=== PATIENT | male | born 1950 | race African-American/Black ===

== ENCOUNTER 2016-11-19 19:41 | Emergency (ER) | payer OTHER, BC ==
[2016-11-19 20:14] VITALS: BP 121/73; PULSE 66; TEMP 97.9; BMI 37.2
--- NOTE | 2016-11-19 21:09 | PDOC ---
History of Present Illness - General Chief Complaint: Pain Stated Complaint: PAIN Time Seen by Provider: 11/19/16 20:56 History Source: Patient Exam Limitations: No Limitations - History of Present Illness Initial Comments: CHIEF COMPLAINT: 66 y/o afebrile male with PMH HTN and DM c/o right wrist pain x 2 weeks. HISTORY OF PRESENT ILLNESS: The patient states his wrist, just below the base of his thumb has been hurting for 2 weeks. He denies trauma to the area or fall onto outstretched hands. 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 He denies swelling, redness, numbnes/tingling. Vital signs on arrival are within normal limits. REVIEW OF SYSTEMS: GENERAL/CONSTITUTIONAL: No fever/chills. No weakness. No weight change. HEAD, EYES, EARS, NOSE AND THROAT: No change in vision. No ear pain or discharge. No sore throat. MUSCULOSKELETAL: +right wrist pain. No neck or back pain. SKIN: No rash or easy bruising. NEUROLOGIC: No headache, vertigo, loss of consciousness, or loss of sensation. PHYSICAL EXAM: VITAL_SIGNS: within normal limits GENERAL_APPEARANCE: alert, cooperative, No obvious discomfort. MENTAL_STATUS: speech clear, oriented X 3, responds appropriately to questions. NEURO: motor intact and sensory intact in injured extremity. EXTREMITIES: good pulse in injured extremity. Positive Roger's test and TTP to right snuffbox area. No redness or swelling to affected area. SKIN: warm, dry, good color. Past History - Past Medical History Allergies/Adverse Reactions: Allergies Allergy/AdvReac Type Severity Reaction Status Date / Time No Known Allergies Allergy Verified 11/19/16 20:10 Home Medications: Ambulatory Orders Metformin HCl 500 mg PO ASDIR 11/19/16 Sitagliptin Phosphate [Januvia] 50 mg PO DAILY 11/19/16 Diabetes: Yes HTN: Yes - Immunization History Immunization Up to Date: Yes - Psycho/Social/Smoking Cessation Hx Anxiety: No Suicidal Ideation: No Smoking Status: Yes Smoking History: Never smoked Years of Tobacco Use: 15 Have you smoked in the past 12 months: No Number of Cigarettes Smoked Daily: 10 Cigars Per Day: 0 Information on smoking cessation initiated: No Hx Alcohol Use: No Drug/Substance Use Hx: No *Physical Exam - Vital Signs Last Vital Signs Temp Pulse Resp BP Pulse Ox 97.9 F 66 14 121/73 97 11/19/16 20:12 11/19/16 20:12 11/19/16 20:12 11/19/16 20:12 11/19/16 20:12 Medical Decision Making - Medical Decision Making A/P: 66 y/o afebrile male with right dequervain's tenosynovitis. THe patient is insisting on an xray. Xray of right wrist IMPRESSION (wet read): No obvious fracture The patient was given the diagnosis. Suggested he try to find and over the counter brace that holds his right thumb in extension, apply ice multiple times per day and take aleve consistently for pain. He has a scheduled Orthopedic appointment on 11/24/16, which I instructed him to keep. The patient verbalizes understanding of all instructions, has no further questions and is awaiting discharge. *DC/Admit/Observation/Transfer Diagnosis at time of Disposition: Tenosynovitis, de Quervain - Discharge Dispostion Disposition: HOME - Referrals Referrals: Allan Hernandez MD [Primary Care Provider] - - Patient Instructions Printed Discharge Instructions: DI for Tenosynovitis, DI for De Quervain's Tenosynovitis Additional Instructions: Discharge Instructions: -You have DeQuervain's Tenosynovitis -Please take Aleve daily as prescribed -Apply ice to the affected area multiple times per day -use an over the counter brace that holds your thumb in place -Keep your follow up appointment with your orthopedic doctor scheduled for next week.
== END 2016-11-19 21:57 | disposition home or self-care (01) ==
LOC: JERFT 19:41
DX: M65.4 Radial styloid tenosynovitis [de Quervain] (principal); E11.9 Type 2 diabetes mellitus without complications; Z79.84 Long term (current) use of oral hypoglycemic drugs
CPT/HCPCS: 73110-TC-RT; 73130-TC-RT; 99281-25

== ENCOUNTER 2017-11-02 10:07 | Day surgery (SDC) | payer OTHER, BC ==
[2017-11-02] MEDS ORDERED: PROPOFOL 20 ML ONE ×3 (10:58)
[2017-11-02] MEDS ORDERED: LIDOCAINE HCL/PF 2% SDV 5ML VIAL ONE (10:58)
[2017-11-02 11:18] VITALS: BMI 36.6
[2017-11-02 12:44] VITALS: TEMP 97.4
[2017-11-02 13:34] VITALS: BP 123/61; PULSE 75
[2017-11-02 14:19] LABS: ALBUMIN 3.7 g/dl (3.4-5.0); ANION GAP 9 (8-16); BILIRUBIN,TOTAL 0.7 mg/dL (0.2-1.0); BLOOD UREA NITROGEN 8 mg/dL (7-18); CALCIUM 9.9 mg/dL (8.5-10.1); CHLORIDE 104 mmol/L (98-107); CO2 27 mmol/L (21-32); CREATININE 0.9 mg/dL (0.7-1.3); GLUCOSE,RANDOM 105 mg/dL (74-106); SGOT/AST 45 U/L (15-37); SGPT/ALT 71 U/L (12-78); SODIUM 140 mmol/L (136-145); TOT PROT 7.6 g/dl (6.4-8.2)
[2017-11-02 14:20] LABS: ALK PHOS 190 U/L (45-117)
--- NOTE | 2017-11-03 11:31 | PATH ---
Surgical Pathology Report Patient Name: FLOR YODER [facility]. Rec. #: [id number] /Age/Gender: 1950 (Age: 67) / M Account: [id number] Location: ASU-ENDOSCOPY Taken: 11/02/2017 Received: 11/02/2017 Reported: 11/03/2017 Physicians: Donato Persaud D.O. Specimen(s) Received A: PROXIMAL TRANSVERSE COLON B: BX LEFT COLON POLYP Clinical History Preoperative diagnosis: Colon screening Postoperative diagnosis: Colon polyps, diverticulosis Final Diagnosis A. PROXIMAL TRANSVERSE COLON, POLYP, POLYPECTOMY: TUBULAR ADENOMA. B. COLON, LEFT, POLYP, BIOPSY: POLYPOID COLONIC MUCOSA WITH SUPERFICIAL HYPERPLASTIC FEATURES. Electronically Signed Diana Gilliland M.D. Gross Description A. Received in formalin, labeled "proximal transverse colon polyp" is a cabello, polypoid portion of soft tissue measuring 0.5 cm. in greatest dimension. The specimen is submitted in toto in one cassette. B. Received in formalin, labeled "biopsy left colon polyp" are 2 cabello, irregular portions of soft tissue measuring 0.1 and 0.2 cm. in greatest dimension. The specimens are submitted in toto in one cassette. 11/02/2017 saudi11/02/2017
[2017-11-05 00:12] LABS: HCV RNA GENOTYPE 1a (.)
== END 2017-11-02 13:40 | disposition home or self-care (01) ==
LOC: JASU-ENDO 10:07
PROVIDERS: ATTEND Internal Medicine Gastroenterology
PROC: 0DBG8ZX Excision of Left Large Intestine, Via Natural or Artificial Opening Endoscopic, Diagnostic (ICD-10-PCS; 2017-11-02)
PROC: 0DBL8ZX Excision of Transverse Colon, Via Natural or Artificial Opening Endoscopic, Diagnostic (ICD-10-PCS; principal; 2017-11-02 12:15)
DX: Z12.11 Encounter for screening for malignant neoplasm of colon (principal); K57.30 Diverticulosis of large intestine without perforation or abscess without bleeding; D12.3 Benign neoplasm of transverse colon; K64.8 Other hemorrhoids
CPT/HCPCS: 36415; 80053; 82105; 87902; 88305-TC

== ENCOUNTER 2019-09-02 11:40 | Emergency (ER) | payer OTHER, BC ==
[2019-09-02 11:53] VITALS: BP 135/81; PULSE 75; TEMP 98.1; BMI 39.9
--- NOTE | 2019-09-02 12:32 | PDOC ---
History of Present Illness - General Chief Complaint: Cold Symptoms Stated Complaint: COLD SYMPTOMS Time Seen by Provider: 09/02/19 12:11 History Source: Patient - History of Present Illness Timing/Duration: reports: other Associated Symptoms: denies: cough Past History - Past Medical History Allergies/Adverse Reactions: Allergies Allergy/AdvReac Type Severity Reaction Status Date / Time No Known Allergies Allergy Verified 11/19/16 20:10 Home Medications: Ambulatory Orders Sitagliptin Phosphate [Januvia] 100 mg PO DAILY 11/19/16 metFORMIN HCL [Metformin HCl] 500 mg PO BID 11/19/16 Amlodipine Besylate/Benazepril [Lotrel 10-20 mg Capsule] 1 cap PO DAILY Sildenafil Citrate [Viagra] 100 mg PO DAILY 10/26/17 Fluticasone Prop 0.05% Nasal [Flonase -] 1 spray NS ASDIR #1 bot 09/02/19 Loratadine [Claritin] 10 mg PO DAILY #7 tablet 09/02/19 Oxymetazoline HCl [Afrin] 15 ml NS ASDIR #1 mist 09/02/19 Cancer: Yes (PROSTATE, S/P BRACHYTHERAPY 2013) COPD: No Diabetes: Yes HTN: Yes Hypercholesterolemia: Yes - Immunization History Immunization Up to Date: Yes - Psycho Social/Smoking Cessation Hx Smoking Status: Yes Smoking History: Never smoked Years of Tobacco Use: 15 Have you smoked in the past 12 months: No Number of Cigarettes Smoked Daily: 10 If you are a former smoker, when did you quit?: 37 YEARS Cigars Per Day: 0 Information on smoking cessation initiated: No Hx Alcohol Use: No Drug/Substance Use Hx: No Substance Use Type: None Review of Systems - Review of Systems Constitutional: No: Chills, Fever, Malaise, Weakness HEENTM: Yes: Nose Congestion. No: Throat Pain Respiratory: No: Cough, Shortness of Breath *Physical Exam - Vital Signs Last Vital Signs Temp Pulse Resp BP Pulse Ox 98.1 F 75 18 135/81 97 09/02/19 11:50 09/02/19 11:50 09/02/19 11:50 09/02/19 11:50 09/02/19 11:50 - Physical Exam General Appearance: Yes: Appropriately Dressed. No: Apparent Distress HEENT: positive: Normal ENT Inspection, Normal Voice, TMs Normal, Pharynx Normal. negative: Scleral Icterus (R), Scleral Icterus (L), Sinus Tenderness Neck: positive: Supple. negative: Lymphadenopathy (R), Lymphadenopathy (L) Respiratory/Chest: positive: Lungs Clear, Normal Breath Sounds. negative: Respiratory Distress Cardiovascular: positive: Regular Rate, S1, S2 Integumentary: positive: Dry, Warm Neurologic: positive: Fully Oriented, Alert, Normal Mood/Affect Medical Decision Making - Medical Decision Making 09/02/19 12:30 68 yo M, history of hypertension and diabetes, here with nasal congestion with some facial pressure for several days. Taking multiple [id number] medication with no relief. Denies any headache rhinorrhea fever or chills. No body aches see exam M/l viral URI Exam unremarkable Dc w/ symptomatic tx PMD f/u as needed Discharge - Discharge Information Problems reviewed: Yes Clinical Impression/Diagnosis: URI (upper respiratory infection) Qualifiers: URI type: unspecified viral URI Qualified Code(s): J06.9 - Acute upper respiratory infection, unspecified Condition: Good Disposition: HOME - Additional Discharge Information Prescriptions: Fluticasone Prop 0.05% Nasal [Flonase -] 1 spray NS ASDIR #1 bot Loratadine [Claritin] 10 mg PO DAILY #7 tablet Oxymetazoline HCl [Afrin] 15 ml NS ASDIR #1 mist - Follow up/Referral Referrals: Allan Hernandez MD [Primary Care Provider] - - Patient Discharge Instructions Patient Printed Discharge Instructions: DI for Viral Upper Respiratory Infection -- Adult Additional Instructions: Start using Flonase and Afrin and after 3 days STOP using the Afrin and continue the Flonase If you use Afrin for more than 3 days, your congestion can get worse Take 1 Claritin daily Follow-up with your PMD as needed - Post Discharge Activity
== END 2019-09-02 12:35 | disposition home or self-care (01) ==
LOC: JERFT 11:40
DX: J06.9 Acute upper respiratory infection, unspecified (principal); B97.89 Other viral agents as the cause of diseases classified elsewhere; I10 Essential (primary) hypertension; E11.9 Type 2 diabetes mellitus without complications; Z79.84 Long term (current) use of oral hypoglycemic drugs; E78.00 Pure hypercholesterolemia, unspecified; Z85.46 Personal history of malignant neoplasm of prostate
CPT/HCPCS: 99281-25

== ENCOUNTER 2020-07-11 05:03 | Day surgery (SDC) | payer OTHER, BC ==
[2020-07-10 09:04] VITALS: BMI 32.5
[2020-07-11] MEDS ORDERED: LIDOCAINE HCL 1%, 10 MG/ML (20ML VIAL) ONE (07:20)
[2020-07-11] MEDS ORDERED: BENZOIN/ALOE VERA/STORAX/TOLU 58 ML BOTTLE ONE (07:35)
[2020-07-11] MEDS ORDERED: PHENYLEPHRINE HCL 10 MG/1 ML SINGLE DOSE VIAL ONE (08:01)
[2020-07-11] MEDS ORDERED: ceFAZolin SODIUM 1 GM VIAL ONE (08:01)
[2020-07-11] MEDS ORDERED: PROPOFOL 20 ML ONE ×3 (08:03→08:05)
[2020-07-11] MEDS ORDERED: SUCCINYLCHOLINE CHLORIDE 200 MG/10 ML SYRINGE ONE (08:04)
[2020-07-11] MEDS ORDERED: MIDAZOLAM HCL 2 MG/2 ML SINGLE DOSE VIAL ONE ×2 (08:05→08:45)
[2020-07-11] MEDS ORDERED: LIDOCAINE HCL 1%, 10 MG/ML (20ML VIAL) ID ONE ×3 (08:32→09:34)
[2020-07-11] MEDS ORDERED: BUPIVACAINE HCL/PF 0.5% (5 MG/ML) 30 ML VIAL IJ ONE ×2 (08:32)
[2020-07-11] MEDS ORDERED: BUPIVACAINE HCL 0.5% 250 MG/50 ML VIAL IJ ONE (09:34)
[2020-07-11 11:17] VITALS: BP 155/81; PULSE 68; TEMP 97
== END 2020-07-11 11:16 | disposition home or self-care (01) ==
LOC: JASU-SURG 05:03
PROVIDERS: ATTEND Surgery
PROC: 0JB10ZZ Excision of Face Subcutaneous Tissue and Fascia, Open Approach (ICD-10-PCS; 2020-07-11)
PROC: 0JB70ZZ Excision of Back Subcutaneous Tissue and Fascia, Open Approach (ICD-10-PCS; principal; 2020-07-11 08:00)
DX: D17.0 Benign lipomatous neoplasm of skin and subcutaneous tissue of head, face and neck (principal); D17.1 Benign lipomatous neoplasm of skin and subcutaneous tissue of trunk; E11.9 Type 2 diabetes mellitus without complications; Z79.84 Long term (current) use of oral hypoglycemic drugs
CPT/HCPCS: 82962; 88304-TC; 88305-TC